=== PATIENT | male | born 1960 | race Caucasian/White ===

== ENCOUNTER → 2017-03-19 | Day surgery (SDC) | payer BC ==
[2017-02-13 14:48] VITALS: Ht 180.3 cm; Wt 81.8 kg
[~2017-03-19] VITALS: Ht 180.3 cm; Wt 81.8 kg
[~2017-03-19] MED LIST: ACETAMINOPHEN 325 MG TAB PO PRN; ASPI-461 PO; ATROPINE SULFATE 0.1 MG/ML 5ML SYR IV PRN; ATROPINE SULFATE 1% OP SOLN 2 ML BTL ONE; AcetylCHOLine CHL OP SOL 1:100 2 ML BTL ONE; BRIM0.2S OPL; BRIMONIDINE TART 0.2% OP SOLN PER DROP CHARGE ONE; BRIMONIDINE TARTRATE 0.2% 5ML ONE; BSS 500ML IRRIG ONE; BSS FLUSH ONE; EpHEDrine SULFATE INJ 50 MG/ML AMP IV PRN; EpINEphrine INJ 1MG/ML AMP 1 MG/ML AMP ONE; FENTANYL CITRATE INJ 50 MCG/1 ML 2 ML VIAL ONE; FEXO1TAB49 PO; HEALON 10MG/ML 0.85 ML SYR INSTIL ONE; LACTATED RINGER'S 1000ML 1,000 ML IV SCH; LIDOCAINE 3.5% OPH GEL PER APPLICATION CHARGE OPR SCH; LIDOCAINE 4% OP SOLN DROP CHARGE ONE; LIDOCAINE 4% OP SOLN DROP CHARGE OPR SCH; LIDOCAINE HCL 1% MPF 2 ML VIAL ONE; LOTE0.5S OPL; MIDAZOLAM HCL 1 MG/ML 2ML VIAL ONE; MOXIFLOXACIN OPH SOLN PER DROP CHARGE ONE; MULT-506 PO; OMEG10007 PO; POVIDONE-IODINE OP SOLN 30 ML BTL ONE; PROPARACAINE 0.5% OP SOLN PER DROP CHARGE OPR SCH; SILD50TA PO; TETRACAINE HCL (OPHTH) 60 DROPS/4 ML BTL OP ONE; TOBRAMYCIN/DEXAMETHASONE OPH OINT PER APPLN CHARGE ONE
[2017-03-19] MEDS: MOXIFLOXACIN OPH SOLN PER DROP CHARGE OPR SCH ×3 (10:36→10:56)
--- NOTE | 2017-03-19 11:18 | History & Physical Bridge - [place] ---
H&P Re-Evaluation Bridge Note: I have examined the patient, reviewed the History & Physical and in the interval since the performance of the History & Physical I have noted the following changes of clinical significance: No changes noted
[2017-03-19 13:14] VITALS: TEMP 36.6
--- NOTE | 2017-03-19 13:14 | [facility] Post Operative Brief Note ---
Immediate Operative Summary Operative Date Mar 19, 2017. Pre-Operative Diagnosis Fuch's Corneal Dystrophy Right Eye Post-Operative Diagnosis Same Procedure(s) Performed Right Eye Descements Stripping Automated Endothelial Keratoplasty, Back Bench Surgeon Dr. Poole Cylinder Valve Repairer Surgeon(s) None Estimated Blood Loss 0 mL Findings fuchs corneal dystrophy right eye Fluids (cc crystalloids) see anesthesia record Specimens Corneal Donor Rim - for routine culture, gram stain and aerobic Drains none Anesthesia local with sedation Complication(s) None Disposition Recovery Room / PACU
--- NOTE | 2017-03-19 13:14 | Discharge Instructions-SurgCtr ---
Discharge Instructions Date of Service Mar 19, 2017. Visit Reason for Visit: Right Eye Endothelial Corneal Dystrophy Discharge Discharge Diagnosis / Problem: fuchs corneal dystrophy right eye Discharge Goals Goal(s): Improve function Activity Recommendations Activity Limitations: per Instructions/Follow-up section Lifting Limitations: no more than 5 pounds Anesthesia . Post Anesthesia Instructions: If you have had General Anesthesia or IV Sedation: * Do not drive today. * Resume driving when surgeon permits. * Do not make important decisions or sign legal documents today. * Call surgeon for: 1. Temperature elevations greater than 101 degrees F. 2. Uncontrollable pain. 3. Excessive bleeding. 4. Persistent nausea and vomiting. 5. Medication intolerance (nausea, vomiting or rash). * For nausea and vomiting use only clear liquids such as: tea, soda, bouillon until nausea subsides, then gradually increase diet as tolerated. * If you have any concerns or questions, call your surgeon's office. If physician is unavailable and it is an emergency, call 911 or go to the nearest emergency room. . Instructions / Follow-Up Instructions / Follow-Up ACTIVITY RECOMMENDATIONS: * Bedrest except for bathroom/ meals (Eyes to the harini) MEDICATIONS: Resume previous medications unless instructed otherwise by your surgeon. Eye drops (today and tomorrow): Cipro - one drop in operative eye every 2 hours while awake Prednisolone 1% - one drop in operative eye every 2 hours while awake SPECIAL CARE INSTRUCTIONS: * If any problems or concerns, please call Dr. Poole's office at . * Keep plastic shield taped over eye to sleep at night. * Keep plastic shield taped over eye except to administer eye drops. * Keep plastic shield on until office visit the following day. FOLLOW UP VISIT: Follow-up with Dr. Poole in the [place] office as scheduled. If not already scheduled, please call the office at . Diet Recommendations Home Diet: resume previous diet Procedures Procedures Performed: Right Eye Descements Stripping Automated Endothelial Keratoplasty, Back Bench Pending Studies Studies pending at discharge: yes List of pending studies: cornea donor culture Medical Emergencies . Who to Call and When: Medical Emergencies: If at any time you feel your situation is an emergency, please call 911 immediately. . Non-Emergent Contact Non-Emergency issues call your: Helmet Hat Sweatband Puncher . . "Provider Documentation" section prepared by Saúl Poole. .
--- NOTE | 2017-03-19 13:33 | OPERATIVE REPORT ---
DATE OF OPERATION: 03/19/2017 PREOPERATIVE DIAGNOSIS: Fuchs corneal dystrophy, right eye. POSTOPERATIVE DIAGNOSIS: Same. PROCEDURE PERFORMED: Descemet stripping automated endothelial keratoplasty, right eye. COMPLICATIONS: None. ESTIMATED BLOOD LOSS: None. ANESTHESIA: Local with sedation. DESCRIPTION OF PROCEDURE: After an informed consent was obtained in the holding area, attention was first turned to the donor cornea. It was placed endothelial side up on Meghan trephine and trephinated by myself using an 8.0 mm Meghan trephine. It was then covered in Optisol and set aside. The patient was then brought back to the operating room, where cardiac monitoring leads and oxygen by nasal cannula was administered by anesthesia. Gentle IV sedation was given and the patient's right eye was prepped and draped in the usual sterile fashion. A wire lid speculum was placed in the right eye and the operating microscope swung into position. Using 0.12 forceps and a supersharp blade, a paracentesis port was made at the 11 o'clock position of the patient's right eye. 1% nonpreserved lidocaine was injected into the anterior chamber for anesthesia. A 2.2-mm keratome blade was then used to make a shelved clear cornea incision at the 9 o'clock position of the patient's right eye. The cornea was then marked with the previously used Meghan trephine and Healon was injected into the anterior chamber. A reversed Sinskey hook was used to score and strip Descemet's membrane from within the marked area. Descemet's stripper was then used to remove the Descemet's membrane completely from the eye from within the marked area. Stromal lead teacher was then used to roughen the stromal bed in the periphery of the stripped area. The primary incision was then marked and enlarged to 4 mm. Irrigation-aspiration handpiece was used to remove the viscoelastic material from the eye. The donor graft was then placed endothelial side up on the EndoSerter device. A drop of Healon placed on it and it was retracted into the EndoSerter. The EndoSerter was then used to inject the donor graft into the anterior chamber. It was unfolded underneath BSS and a single 10-0 nylon suture was placed through the primary incision. The anterior chamber was then filled with air for complete air fill of the eye and the graft was centered. After 15 minutes, the complete air fill with the cornea being covered in Healon, the Healon was rinsed off the eye and the interface was milked using a [place]idia Lasik roller. Healon was placed back over the eye and another 10 minutes elapsed, after which time, a partial air fluid exchange was done leaving behind a 50% air fill of the anterior chamber. ReSure sealant was then placed over the primary incision as well as the paracentesis. The wire lid speculum was removed from the eye. Vigamox, brimonidine and TobraDex ointment were placed on the eye and the eye was shielded. The patient tolerated the procedure well and was taken to recovery area in stable condition. I attest to the content of the Intraoperative Record and any orders documented therein. Any exceptions are noted below. RICKEY
[2017-03-19 14:00] VITALS: BP 144/88; PULSE 53; O2SAT 98
--- NOTE | 2017-03-19 14:18 | Anesthesiology Progress Note ---
Anesthesia Post Op Note Date & Time Mar 19, 2017 at 14:18 Vital Signs Pain Intensity: 0 Vital Signs Past 12 Hours Date Time Temp Pulse Resp B/P (MAP) Pulse Ox O2 Delivery O2 Flow Rate FiO2 03/19/17 14:00 53 16 144/88 (106) 98 Room Air 03/19/17 13:39 59 16 131/82 (98) 98 Room Air 03/19/17 13:14 36.6 57 16 139/88 (105) 95 Room Air 03/19/17 10:28 36.6 70 16 123/77 (92) 100 Room Air Notes Mental Status: alert / awake / arousable, participated in evaluation Pt Amnestic to Procedure: Yes Nausea / Vomiting: adequately controlled Pain: adequately controlled Airway Patency, RR, SpO2: stable & adequate BP & HR: stable & adequate Hydration State: stable & adequate Anesthetic Complications: no major complications apparent
== END | disposition home or self-care (01) ==
LOC: X.SURG 10:16
PROVIDERS: ATTEND Ophthalmology
DX: H18.51 Endothelial corneal dystrophy (principal); H40.059 Ocular hypertension, unspecified eye; H18.10 Bullous keratopathy, unspecified eye; Z94.7 Corneal transplant status

== ENCOUNTER → 2017-03-26 | Day surgery (SDC) | payer BC ==
[2017-03-23 08:49] VITALS: Ht 180.3 cm; Wt 81.8 kg
[~2017-03-26] VITALS: Ht 180.3 cm; Wt 81.8 kg
[~2017-03-26] MED LIST changes: +AMVISC PLUS 0.8ML SYRINGE INT OCU ONE; -ASPI-461 PO; -ATROPINE SULFATE 1% OP SOLN 2 ML BTL ONE; -AcetylCHOLine CHL OP SOL 1:100 2 ML BTL ONE; -BRIMONIDINE TARTRATE 0.2% 5ML ONE; -BSS 500ML IRRIG ONE; -BSS FLUSH ONE; -FENTANYL CITRATE INJ 50 MCG/1 ML 2 ML VIAL ONE; -FEXO1TAB49 PO; -HEALON 10MG/ML 0.85 ML SYR INSTIL ONE; +KETOROLAC TROMETHAMINE 30 MG/ML VIAL ONE; +NURSING VERBAL MED ORDER ONE; +ONDANSETRON INJ 2 MG/ML 2 ML VIAL IV PRN; +ONDANSETRON INJ 2 MG/ML 2 ML VIAL ONE; +PILOCARPINE HCL 2% OP SOLN 15 ML BTL ONE; +PILOCARPINE HCL 2% OP SOLN 15 ML BTL OPR SCH; +PROPOFOL IV EMULSION 10 MG/ML 20 ML VIAL IV ONE; -TETRACAINE HCL (OPHTH) 60 DROPS/4 ML BTL OP ONE
[2017-03-26] MEDS: MOXIFLOXACIN OPH SOLN PER DROP CHARGE OPR SCH ×3 (09:15→09:35)
--- NOTE | 2017-03-26 11:40 | Discharge Instructions-SurgCtr ---
Discharge Instructions Date of Service Mar 26, 2017. Visit Reason for Visit: Right Eye Complication Of Corneal Transplant Discharge Discharge Diagnosis / Problem: detached dsaek graft right eye Discharge Goals Goal(s): Improve function Activity Recommendations Activity Limitations: per Instructions/Follow-up section Lifting Limitations: no more than 5 pounds Anesthesia . Post Anesthesia Instructions: If you have had General Anesthesia or IV Sedation: * Do not drive today. * Resume driving when surgeon permits. * Do not make important decisions or sign legal documents today. * Call surgeon for: 1. Temperature elevations greater than 101 degrees F. 2. Uncontrollable pain. 3. Excessive bleeding. 4. Persistent nausea and vomiting. 5. Medication intolerance (nausea, vomiting or rash). * For nausea and vomiting use only clear liquids such as: tea, soda, bouillon until nausea subsides, then gradually increase diet as tolerated. * If you have any concerns or questions, call your surgeon's office. If physician is unavailable and it is an emergency, call 911 or go to the nearest emergency room. . Instructions / Follow-Up Instructions / Follow-Up ACTIVITY RECOMMENDATIONS: * Bedrest- Eyes to the harini MEDICATIONS: Resume previous medications unless instructed otherwise by your surgeon. Eye drops (today and tomorrow): Cipro - one drop in operative eye 4 x a day Prednisolone 1% - one drop in operative eye 4 x a day SPECIAL CARE INSTRUCTIONS: * If any problems or concerns, please call Dr. Poole's office at . * Keep plastic shield taped over eye to sleep at night. * Keep plastic shield taped over eye except to administer eye drops. * Keep plastic shield on until office visit the following day. FOLLOW UP VISIT: Follow-up with Dr. Poole in the [place] office as scheduled. If not already scheduled, please call the office at . Diet Recommendations Home Diet: resume previous diet Procedures Procedures Performed: Right Eye Refloatation Of Cornea Graft Pending Studies Studies pending at discharge: no Medical Emergencies . Who to Call and When: Medical Emergencies: If at any time you feel your situation is an emergency, please call 911 immediately. . Non-Emergent Contact Non-Emergency issues call your: Energy Conservation Technician . . "Provider Documentation" section prepared by Saúl Poole. .
--- NOTE | 2017-03-26 11:41 | [facility] Post Operative Brief Note ---
Immediate Operative Summary Operative Date Mar 26, 2017. Pre-Operative Diagnosis Detached DSAEK graft right eye Post-Operative Diagnosis Same Procedure(s) Performed Right Eye Refloatation Of Cornea Graft Surgeon Dr Poole Penciller Surgeon(s) None Estimated Blood Loss 0ml Findings detached DSAEK graft right eye Fluids (cc crystalloids) see anesthesia record Specimens None Drains none Anesthesia general with LMA Complication(s) None Disposition Recovery Room / PACU
--- NOTE | 2017-03-26 12:22 | OPERATIVE REPORT ---
DATE OF OPERATION: 03/26/2017 PREOPERATIVE DIAGNOSIS: Detached DSAEK graft, right eye. POSTOPERATIVE DIAGNOSIS: Detached DSAEK graft, right eye. PROCEDURE PERFORMED: Refloatation of DSAEK graft, right eye. COMPLICATIONS: None. ESTIMATED BLOOD LOSS: None. ANESTHESIA: General. DESCRIPTION OF PROCEDURE: After informed consent was obtained in the holding area, the patient was taken back to the operating room where cardiac monitoring leads and oxygen by nasal cannula was administered by Anesthesia. Gentle IV sedation was given, and the patient's right eye was prepped and draped in the usual sterile fashion. A wire lid speculum was placed in the right eye and the operating microscope swung into position. Using 0.12 forceps and a supersharp blade, a paracentesis port was made at the 11 o'clock position of the patient's right eye. The patient was very uncomfortable and was very uncomfortable with the speculum in the eye. A little bit of propofol was not enough to make him comfortable, so a decision was made to convert him to general and place an LMA. This was done by Anesthesia, and the patient's right eye was reprepped and draped in the usual sterile fashion. A wire lid speculum was then placed into the right eye and the operating microscope was brought into position. An air bubble was placed underneath the detached graft in the right eye, and it was rotated into position using a reverse Sinskey hook. A complete air fill of the eye was then achieved and held for 15 minutes. At the conclusion of 15 minutes, the interface was milked using a [place] Lasik roller. Once this was completed, another 10 minutes was elapsed, all of which time the cornea was coated in Amvisc. At the conclusion of the second 10 minutes, partial air fluid exchange was done leaving behind a 60% air fill. ReSure sealant was then placed over the paracentesis that was made earlier in the surgery. The wire lid speculum was removed from the eye. Vigamox, brimonidine, and TobraDex ointment were placed on the eye and the eye was shielded. The patient tolerated the procedure well and was taken to the post-anesthesia care unit in stable condition. I attest to the content of the Intraoperative Record and any orders documented therein. Any exceptions are noted below. RICKEY
[2017-03-26 13:21] VITALS: TEMP 36.6
[2017-03-26 13:56] VITALS: BP 141/86; PULSE 58; O2SAT 100
--- NOTE | 2017-03-26 14:10 | Anesthesia Progress Nt - [facility] ---
Anesthesia Post Op Note Date & Time Mar 26, 2017 at 14:08 Vital Signs Pain Intensity: 7.0 Vital Signs Past 12 Hours Date Time Temp Pulse Resp B/P (MAP) Pulse Ox O2 Delivery O2 Flow Rate FiO2 03/26/17 13:56 58 16 141/86 (104) 100 Room Air 03/26/17 13:21 36.6 56 16 128/81 (97) 98 Room Air 03/26/17 13:14 59 14 99 03/26/17 13:14 60 14 03/26/17 13:13 114/82 03/26/17 13:12 150/98 03/26/17 13:09 60 14 03/26/17 13:09 59 14 100 03/26/17 13:06 113/83 03/26/17 13:04 58 10 03/26/17 13:04 56 10 100 03/26/17 13:01 119/85 03/26/17 12:59 58 12 03/26/17 12:59 58 12 100 03/26/17 12:58 129/81 03/26/17 12:54 60 11 03/26/17 12:54 60 11 100 03/26/17 12:51 126/87 03/26/17 12:49 14 03/26/17 12:49 62 14 03/26/17 12:48 36.4 60 16 133/87 98 Room Air 03/26/17 12:46 133/87 03/26/17 12:44 61 11 03/26/17 12:44 58 11 100 03/26/17 12:41 121/77 03/26/17 12:39 62 15 100 03/26/17 12:39 63 15 03/26/17 12:36 120/82 03/26/17 12:34 59 17 03/26/17 12:34 59 17 100 03/26/17 12:31 135/88 03/26/17 12:29 68 14 99 03/26/17 12:29 67 14 03/26/17 12:28 66 18 03/26/17 12:28 18 03/26/17 12:26 142/85 03/26/17 12:23 61 20 100 03/26/17 12:23 61 20 03/26/17 12:21 120/75 03/26/17 12:21 120/75 03/26/17 12:19 36.8 61 20 120/75 100 Mask 10 03/26/17 12:18 62 20 100 03/26/17 12:18 62 20 100 03/26/17 12:18 61 20 03/26/17 12:18 61 20 03/26/17 12:16 119/72 03/26/17 12:16 119/72 03/26/17 12:13 64 19 99 03/26/17 12:13 64 19 99 03/26/17 12:13 64 19 03/26/17 12:13 64 19 03/26/17 12:11 119/69 03/26/17 12:11 119/69 03/26/17 12:08 66 19 03/26/17 12:08 66 19 99 03/26/17 12:08 66 19 03/26/17 12:08 66 19 99 03/26/17 12:07 66 19 03/26/17 12:07 65 19 98 03/26/17 12:06 109/68 03/26/17 12:02 68 19 99 03/26/17 12:02 68 19 03/26/17 12:01 114/66 03/26/17 11:57 69 19 99 03/26/17 11:57 69 19 03/26/17 11:56 117/59 03/26/17 11:55 71 18 99 03/26/17 11:55 71 18 03/26/17 11:51 113/61 03/26/17 11:50 71 20 03/26/17 11:50 71 20 99 03/26/17 11:46 123/71 03/26/17 11:45 36.2 72 20 123/71 98 Diffusion Mask 10 03/26/17 09:10 36.8 62 16 114/74 (87) 98 Room Air Notes Mental Status: alert / awake / arousable, participated in evaluation Pt Amnestic to Procedure: Yes Nausea / Vomiting: adequately controlled Pain: adequately controlled Airway Patency, RR, SpO2: stable & adequate BP & HR: stable & adequate Hydration State: stable & adequate Anesthetic Complications: no major complications apparent Patient was unable to tolerate procedure under light sedation with local. After attempting moderate to deep sedation unsuccessfully, he was converted to LMA-GA and a propofol TIVA initiated. Surgery and recovery proceeded without incident and the patient was not nauseated in pacu. Given his history of PONV after discharge, we did give him one dose of IV zofran before discharge.
== END | disposition home or self-care (01) ==
LOC: X.SURG 08:57
PROVIDERS: ATTEND Ophthalmology
DX: T81.31XA Disruption of external operation (surgical) wound, not elsewhere classified, initial encounter (principal); Y83.1 Surgical operation with implant of artificial internal device as the cause of abnormal reaction of the patient, or of later complication, without mention of misadventure at the time of the procedure